=== PATIENT | female | born 1995 | race Caucasian/White ===

== ENCOUNTER 2023-10-09 17:18 | Emergency (ER) | payer BC ==
[2023-10-09 18:07] LABS: BASOPHILS ABSOLUTE AUTO 0.03 K/uL (0.00-0.20); BASOPHILS PERCENT AUTO 0.3 % (0.0-2.0); EOSINOPHILS ABSOLUTE AUTO 0.05 K/uL (0.00-0.50); EOSINOPHILS PERCENT AUTO 0.5 % (0.0-5.0); HEMATOCRIT 45.1 % (34.0-46.0); LYMPHOCYTES ABSOLUTE AUTO 1.31 K/uL (0.50-3.50); LYMPHOCYTES PERCENT AUTO 12.3 % (10.0-50.0); MEAN CORPUSCULAR HEMOGLOBIN 29.7 pg (28.2-33.3); MEAN CORPUSCULAR HGB CONC 33.3 g/dL (31.7-36.0); MEAN CORPUSCULAR VOLUME 89.3 fL (84.0-98.0); MONOCYTES ABSOLUTE AUTO 0.47 K/uL (0.00-1.00); MONOCYTES PERCENT AUTO 4.4 % (2.0-14.0); NEUTROPHILS ABSOLUTE AUTO 8.79 K/uL (1.40-7.00); NEUTROPHILS PERCENT AUTO 82.5 % (45.0-80.0); PLATELET COUNT,PLT 416 K/uL (150-350); RED BLOOD CELL COUNT 5.05 M/uL (3.77-5.09); RED CELL DISTRIBUTION WIDTH 13.6 % (11.2-14.1); WHITE BLOOD CELL COUNT,WBC 10.7 K/uL (4.0-10.2)
[2023-10-09 18:24] LABS: HCO3 VENOUS,POC 26 mmol/L (23-28); O2 SATURATION VENOUS,POC 48 %; PCO2 VENOUS,POC 47 mmHg (41-51); PH VENOUS,POC 7.35 (7.31-7.41); PO2 VENOUS,POC 28 mmHg
[2023-10-09 18:31] LABS: ALANINE AMINOTRANSFERASE,ALT 28 U/L (12-78); ALKALINE PHOSPHATASE 87 IU/L (46-116); ANION GAP 9.6 meq/L (7-15); ASPARTATE AMNIOTRANSFERASE,AST 17 U/L (15-37); BLOOD UREA NITROGEN,BUN 11 mg/dL (7-18); CALCIUM 9.2 mg/dL (8.5-10.1); CARBON DIOXIDE,CO2 28.4 mmol/L (21.0-32.0); CHLORIDE,CL 101 mmol/L (98-107); CREATININE 0.99 mg/dL (0.51-1.17); GLUCOSE RANDOM 120 mg/dL (70-99); POTASSIUM,K 4.3 mmol/L (3.5-5.1); PROTEIN TOTAL,TP 8.1 g/dL (6.4-8.2); SODIUM,NA 139 mmol/L (136-145)
[2023-10-09 18:35] LABS: ESTIMATED GFR 81 mL/min (>=60)
== END 2023-10-09 19:05 | disposition home or self-care (01) ==
LOC: LL.ED 17:18
DX: T58.91XA Toxic effect of carbon monoxide from unspecified source, accidental (unintentional), initial encounter (principal); Z79.899 Other long term (current) drug therapy; Z91.048 Other nonmedicinal substance allergy status
CPT/HCPCS: 36415; 80053; 82375; 82803; 85025; 99283; 99284

== ENCOUNTER 2025-06-24 14:55 | Emergency (ER) | payer BC ==
[2025-06-24 15:20] LABS: BASOPHILS ABSOLUTE AUTO 0.02 K/uL (0.00-0.20); BASOPHILS PERCENT AUTO 0.3 % (0.0-2.0); EOSINOPHILS ABSOLUTE AUTO 0.13 K/uL (0.00-0.50); EOSINOPHILS PERCENT AUTO 1.7 % (0.0-5.0); IMMATURE GRAN ABSOLUTE AUTO 0.01 10^3/uL (0.00-0.04); IMMATURE GRAN PERCENT AUTO 0.1 % (0.0-0.4); LYMPHOCYTES ABSOLUTE AUTO 1.63 K/uL (0.50-3.50); LYMPHOCYTES PERCENT AUTO 21.8 % (10.0-50.0); MONOCYTES ABSOLUTE AUTO 0.60 K/uL (0.00-1.00); MONOCYTES PERCENT AUTO 8.0 % (2.0-14.0); NEUTROPHILS ABSOLUTE AUTO 5.10 K/uL (1.40-7.00); NEUTROPHILS PERCENT AUTO 68.1 % (45.0-80.0); PLATELET COUNT,PLT 259 K/uL (150-350); RED BLOOD CELL COUNT 3.89 M/uL (3.77-5.09); RED CELL DISTRIBUTION WIDTH 13.2 % (11.2-14.1); WHITE BLOOD CELL COUNT,WBC 7.5 K/uL (4.0-10.2)
[2025-06-24 15:40] LABS: ALANINE AMINOTRANSFERASE,ALT 19 U/L (12-78); ASPARTATE AMNIOTRANSFERASE,AST 13 U/L (15-37); BILIRUBIN TOTAL 0.3 mg/dL (0.2-1.0); BLOOD UREA NITROGEN,BUN 9 mg/dL (7-18); CARBON DIOXIDE,CO2 26.0 mmol/L (21.0-32.0); CHLORIDE,CL 107 mmol/L (98-107); CREATININE 0.78 mg/dL (0.51-1.17); GLUCOSE RANDOM 104 mg/dL (70-99); POTASSIUM,K 4.0 mmol/L (3.5-5.1); PROTEIN TOTAL,TP 6.5 g/dL (6.4-8.2); SODIUM,NA 140 mmol/L (136-145)
[2025-06-24 15:50] LABS: ESTIMATED GFR 106 mL/min (>=60)
[2025-06-24 17:08] LABS: HCG QUANTITATIVE 14291 mIU/mL
== END 2025-06-24 16:01 | disposition home or self-care (01) ==
LOC: LL.ED 14:55
DX: O20.9 Hemorrhage in early pregnancy, unspecified (principal); Z3A.18 18 weeks gestation of pregnancy; Z88.8 Allergy status to other drugs, medicaments and biological substances; Z79.899 Other long term (current) drug therapy; Z91.048 Other nonmedicinal substance allergy status
CPT/HCPCS: 36415; 76815; 80053; 84702; 85025; 99283; 99284